=== PATIENT | male | born 1995 | race Hispanic/Latino ===

== ENCOUNTER 2020-03-06 16:33 | Inpatient (IN) | payer OTHER ==
[~2020-03-06] VITALS: Ht 167.6 cm; Wt 63.4 kg
[2020-03-06 17:31] LABS: BASOPHILS % (AUTO) 0.8 % (0.0-5.0); EOSINOPHILS % (AUTO) 3.2 % (0.0-8.0); HEMATOCRIT 36.1 % (42-54); LYMPHOCYTES % (AUTO) 26.3 % (21.0-51.0); MEAN CORPUSCULAR HEMOGLOBIN 30.1 pg (27.0-33.0); MEAN CORPUSCULAR HGB CONC 33.8 g/dL (32.0-36.0); MEAN CORPUSCULAR VOLUME 89.1 fL (79-99); MONOCYTES % (AUTO) 9.3 % (3.0-13.0); PLATELET COUNT (AUTO) 445 K/uL (130-400); RED BLOOD CELL COUNT(AUTO) 4.05 MIL/uL (4.50-6.20); RED CELL DISTRIBUTION WIDTH 13.1 % (11.0-15.5); WHITE BLOOD COUNT (AUTO) 11.9 K/uL (4.8-10.8)
[2020-03-06] MEDS ORDERED: PANTOPRAZOLE 40 MG/VIAL ONE (17:32)
[2020-03-06 17:43] LABS: APPEARANCE,URINE Clear (CLEAR); BILIRUBIN,URINE Negative (NEGATIVE); COLOR,URINE Yellow (YELLOW); GLUCOSE, URINE (UA) Negative (NEGATIVE); KETONES,URINE Negative (NEGATIVE); LEUKOCYTE ESTERASE ,URINE Negative (NEGATIVE); NITRATE,URINE Negative (NEGATIVE); OCCULT BLOOD,URINE Negative (NEGATIVE); PROTEIN,URINE Negative (NEGATIVE); UROBILINOGEN,URINE 0.2 mg/dL (0.2-1.0)
[2020-03-06 18:05] LABS: PARTIAL THROMBOPLASTIN TIME 28.5 SEC (26.3-35.5); PROTHROMBIN TIME 10.8 SEC (9.6-11.6)
[2020-03-06 18:35] LABS: ALBUMIN 3.5 g/dL (3.5-5.0); BILIRUBIN,TOTAL 0.2 mg/dL (0.2-1.0); CREATININE 0.8 mg/dL (0.5-1.5); POTASSIUM 3.9 mmol/L (3.5-5.1); TOTAL PROTEIN, SERUM 7.2 g/dL (6.0-8.3)
[2020-03-06] MEDS ORDERED: ONDANSETRON HCL 4 MG/2 ML VIAL IV PRN (20:45)
[2020-03-06] MEDS ORDERED: ACETAMINOPHEN 325 MG TAB PO PRN ×2 (20:45)
[2020-03-06] MEDS ORDERED: LACTULOSE 20 GM/30 ML UDCUP PO PRN (20:45)
[2020-03-06] MEDS ORDERED: LACTULOSE 20 GM/30 ML UDCUP ONE (21:34)
[2020-03-06] MEDS ORDERED: SODIUM CHLORIDE 0.9% 1000ML 1,000 ML IV ONE (21:34)
[2020-03-06] MEDS ORDERED: METRONIDAZOLE 500MG/100ML BAG 100 ML ONE (21:37)
[2020-03-06] MEDS ORDERED: PHARMACY COMMUNICATION MISC SCH (21:45)
[2020-03-06] MEDS: METRONIDAZOLE 500MG/100ML BAG 100 ML IVPB SCH (22:00)
[2020-03-06] MEDS: SODIUM CHLORIDE 0.9% 1000ML 1,000 ML IV SCH (22:39)
[2020-03-06 22:45] VITALS: BP 114/67
[2020-03-06] MEDS ORDERED: ACET-2743 PO (23:49)
[2020-03-06] MEDS ORDERED: LEVE500L PO (23:49)
[2020-03-06] MEDS ORDERED: PHEN100O5 PO (23:49)
[2020-03-06] MEDS ORDERED: BACL10TA PO (23:49)
[2020-03-06] MEDS ORDERED: THIA100T75 PO (23:49)
[2020-03-06] MEDS ORDERED: ASPI-1005 PO (23:49)
[2020-03-06] MEDS ORDERED: PYRI50TA13 PO (23:49)
[2020-03-06] MEDS ORDERED: PNV1TABL90 PO (23:49)
[2020-03-07 04:10] VITALS: BP 117/60
[2020-03-07] MEDS: METRONIDAZOLE 500MG/100ML BAG 100 ML IVPB SCH (05:10)
[2020-03-07] MEDS: SODIUM CHLORIDE 0.9% 1000ML 1,000 ML IV SCH ×3 (05:11→21:16)
[2020-03-07 06:19] LABS: BASOPHILS % (AUTO) 0.7 % (0.0-5.0); EOSINOPHILS % (AUTO) 4.1 % (0.0-8.0); HEMATOCRIT 34.3 % (42-54); LYMPHOCYTES % (AUTO) 28.4 % (21.0-51.0); MEAN CORPUSCULAR HEMOGLOBIN 30.1 pg (27.0-33.0); MEAN CORPUSCULAR HGB CONC 33.8 g/dL (32.0-36.0); MEAN CORPUSCULAR VOLUME 89.1 fL (79-99); MONOCYTES % (AUTO) 6.6 % (3.0-13.0); NEUTROPHILS % (AUTO) 59.9 % (40.0-77.0); PLATELET COUNT (AUTO) 420 K/uL (130-400); RED BLOOD CELL COUNT(AUTO) 3.85 MIL/uL (4.50-6.20); RED CELL DISTRIBUTION WIDTH 13.2 % (11.0-15.5); WHITE BLOOD COUNT (AUTO) 11.5 K/uL (4.8-10.8)
[2020-03-07 06:58] LABS: CREATININE 0.7 mg/dL (0.5-1.5); POTASSIUM 3.6 mmol/L (3.5-5.1)
[2020-03-07 08:00] VITALS: BP 129/78
[2020-03-07] MEDS ORDERED: THIAMINE MONONITRATE 100 MG PO SCH (09:00)
[2020-03-07] MEDS ORDERED: [UNRECOGNIZED DRUG - REMARK] PO SCH (09:00)
[2020-03-07] MEDS ORDERED: LEVETIRACETAM PO SCH (09:00)
[2020-03-07] MEDS: PANTOPRAZOLE 40 MG/VIAL IVP SCH (09:01)
[2020-03-07 09:05] LABS: FERRITIN 160 ng/mL (30-400); IRON, SERUM 87 mcg/dL (65-175)
[2020-03-07 12:00] VITALS: BP 120/75
[2020-03-07] MEDS ORDERED: COMPOUND PO MISCELLANEOUS 1 EACH MISC MISC PRN (12:30)
[2020-03-07] MEDS: BACLOFEN 10 MG TABLET PO SCH ×4 (13:00→21:16)
[2020-03-07] MEDS: PYRIDOXINE HCL 50 MG TABLET PO SCH ×2 (13:25→21:16)
[2020-03-07] MEDS: ASPIRIN 81MG TAB.CHEW PO SCH (13:25)
[2020-03-07] MEDS: PHENYTOIN 100 MG/4 ML UDCUP PO SCH ×2 (13:25→21:15)
[2020-03-07] MEDS: VANCOMYCIN 250MG/5ML ORAL SOLUTION 40ML PO SCH ×6 (13:27→23:37)
[2020-03-07 16:00] VITALS: BP 124/77
--- NOTE | 2020-03-07 17:05 | NUR ---
INITIAL: No family at the bedside. pt unable to provide history. Call placed to pt's brother Jose Carlos. Pt w recent lengthy hospitalization @ [facility]. Pt lives w brother (Jose Carlos) and friend Urszula. Pt dependent w ADLs and wc bound. Per Jose Carlos he is able to transfer pt to /hospital bed. Jose Carlos mentions that he administers pt's Tube Feedings (Ensure) which are supplied by a program. Jose Carlos mentions that [facility] assisted w prescriptions [place] and provided 3months supply. Pt does not have any healthcare insurance. Per Jose Carlos dcp at this time is for pt to return back home. CM to continue to follow and wait for Md recommendations. Addendum: 03/07/20 at 1710 by HAMILTON TORRES Amended: Links added.
[2020-03-07 20:00] VITALS: BP 117/67
[2020-03-07] MEDS: LEVETIRACETAM 100 MG/ML 5 ML UDCUP PO SCH (21:15)
[2020-03-08] VITALS (7 sets, daily range): BP systolic 115–135; BP diastolic 66–86
[2020-03-08] MEDS: VANCOMYCIN 250MG/5ML ORAL SOLUTION 40ML PO SCH ×6 (05:57→20:12)
[2020-03-08 06:35] LABS: BASOPHILS % (AUTO) 0.6 % (0.0-5.0); EOSINOPHILS % (AUTO) 4.9 % (0.0-8.0); HEMATOCRIT 33.6 % (42-54); LYMPHOCYTES % (AUTO) 24.9 % (21.0-51.0); MEAN CORPUSCULAR HEMOGLOBIN 29.9 pg (27.0-33.0); MEAN CORPUSCULAR HGB CONC 33.9 g/dL (32.0-36.0); MEAN CORPUSCULAR VOLUME 88.2 fL (79-99); MONOCYTES % (AUTO) 7.7 % (3.0-13.0); NEUTROPHILS % (AUTO) 61.6 % (40.0-77.0); PLATELET COUNT (AUTO) 371 K/uL (130-400); RED BLOOD CELL COUNT(AUTO) 3.81 MIL/uL (4.50-6.20); RED CELL DISTRIBUTION WIDTH 12.8 % (11.0-15.5)
[2020-03-08 06:40] LABS: CARBON DIOXIDE 24 mmol/L (21-32); CHLORIDE 104 mmol/L (101-111); CREATININE 0.7 mg/dL (0.5-1.5); GLOMERULAR FILTR. RATE CALC 150 mL/min (>60); GLUCOSE,RANDOM 96 mg/dL (70-105); POTASSIUM 3.1 mmol/L (3.5-5.1); SODIUM SERUM 139 mmol/L (136-145); UREA NITROGEN, BLOOD 6 mg/dL (7-18)
[2020-03-08] MEDS ORDERED: POTASSIUM CHLORIDE 20 MEQ ERTAB PO PRN (07:00)
[2020-03-08] MEDS ORDERED: POTASSIUM CHLORIDE 20MEQ/100ML 100 ML IV PRN (07:00)
[2020-03-08] MEDS ORDERED: BUTALB/ACETAMINOPHEN/CAFFEINE 1 EACH TABLET PO PRN (09:03)
[2020-03-08] MEDS ORDERED: PHENYTOIN 100 MG/4 ML UDCUP PO SCH (09:15)
[2020-03-08] MEDS: PRENATAL VITAMIN RX TABLET PO SCH (09:54)
[2020-03-08] MEDS: ASPIRIN 81MG TAB.CHEW PO SCH (09:54)
[2020-03-08] MEDS: PYRIDOXINE HCL 50 MG TABLET PO SCH ×2 (09:54→20:57)
[2020-03-08] MEDS: BACLOFEN 10 MG TABLET PO SCH ×4 (09:54→20:58)
[2020-03-08] MEDS: THIAMINE HCL 100 MG TABLET PO SCH (09:55)
[2020-03-08] MEDS: LEVETIRACETAM 100 MG/ML 5 ML UDCUP PO SCH ×3 (09:55→20:57)
[2020-03-08] MEDS: PANTOPRAZOLE 40 MG/VIAL IVP SCH (10:04)
[2020-03-08] MEDS: PHENYTOIN 100 MG/4 ML UDCUP PO SCH ×2 (11:14→20:56)
[2020-03-08] MEDS: SODIUM CHLORIDE 0.9% 1000ML 1,000 ML IV SCH ×2 (13:27→22:11)
--- NOTE | 2020-03-08 14:00 | NUR ---
MBSS COMPLETED. +DEEP NON-TRANSIENT PENETRATION WITH NECTAR-THICK LIQUIDS AND HONEY-THICK LIQUIDS VIA CUP SIP. RECOMMEND PLEASURE FEEDS OF PUREED AND HONEY-THICK LIQUIDS VIA TSP WITH PEG FEEDINGS. RECOMMENDATIONS: DYSPHAGIA THERAPY 3-5X WEEK TO INCREASE ORAL MOTOR STRENGTH AND PHARYNGEAL SWALLOW: LTG#1: Pt WILL TOLERATE LEAST RESTRICTIVE DIET TO MEET NUTRITION/HYDRATION WITH NO S/S OF ASPIRATION. LTG#2: SKILLED EDUCATION Pt/FAMILY/STAFF STG#1: Pt WILL PARTICIPATE IN LARYNGEAL ELEVATION/EXCURSION EXERCISES WITH 80% ACCURACY. STG#2: Pt WILL PARTICIPATE IN TONGUE BASE RETRACTION EXERCISES WITH 80% ACCURACY. STG#3: Pt WILL PARTICIPATE IN ORAL MOTOR EXERCISES WITH 80% ACCURACY. STG#4: Pt WILL PARTICIPATE IN PLEASURE FEEDS OF PUREED CONSISTENCY WITH NO THAN 2 S/S OF ASPIRATION, STG#5: PT WILL BE ABLE TO PARTICIPATE IN MBSS AFTER 2-4 WEEKS OF THERAPEUTIC INTERVENTION. STG#6: SKILLED EDUCATION Pt/FAMILY/STAFF. STRINGED INSTRUMENT REPAIRER COORDINATED CARE WITH NURSE GARCIA AND BROTHANGELA FLOWERS. ALL QUESTIONS ANSWERED AT THIS TIME. ALL QUESTIONS ANSWERED AT THIS TIME. Addendum: 03/08/20 at 1539 by KAVITA MERRITT, SPT ST Amended: Links added.
--- NOTE | 2020-03-08 14:11 | NUR ---
RD NOTIFICATION Pt admitted due to encephalopathy and lower GI bleed. RD consulted for TF recommendations Pt has permanent PEG tube and brother provides feedings Q3 hrs. Pt receives 8 ensure bottles and 1 cup of flush after feedings (sibling does not know actual ml or oz measurement). As per brother each ensure bottle provides him [address] RECOMMENDATION: When medically appropriate to initiate feedings. It is recommended for Jevity 1.5, 6 bottles every 24hrs. 85 ml water flush before and after each feeding. This will provide: 2130 kcal, 91 gm protein and 1080 ml free water. Assess TF tolerance Monitor labs. Speech consult is recommended Consult RD for d/c TF recommendations (Will differ from current TF recommendations) LABS: K 3.1, BUN 6, BG 96, ALB 3.5, TOT PRO 7.2, PROCALCITONIN <0.05 LBM: 03/07/20 RD will continue to monitor pt's status Consult RD as nutritional concerns arise Addendum: 03/08/20 at [address] Amended: Links added.
--- NOTE | 2020-03-08 15:14 | NUR ---
Patient's brother Jose Carlos is at bedside in PM, stated that Mr. Michael Trevizo was admitted at [facility] [place] and [facility] February.Per brother Jose Carlos, patient is non-ambulatory for 2 months now.Patient was awake in a supine position RUE in extended position and all fingers are abducted, bilateral knee joints are in semi-flexion position and bilateral hips are abducted and externally rotated. Addendum: 03/08/20 at 1521 by NERIS TINOCO, PT PT Amended: Links added.
--- NOTE | 2020-03-08 21:00 | NUR ---
MEDS SHIFT ASSESSMENT DONE, PLEASE REFER TO CHART. RE-POSITIONED PT IN BED WITH HOB ELEVATED. DUE PO MEDS ADMINISTERED VIA PEG TUBE, TOLERATED WELL. KEPT COMFORTABLE AND RESTED. WILL MONITOR CLOSELY. Addendum: 03/09/20 at 0220 by INA TEJADA RN RN Amended: Links added.
--- NOTE | 2020-03-08 22:15 | NUR ---
FEEDING RE-POSITIONED PT IN BED WITH HOB ELEVATED. STARTED BOLUS FEEDING OF JEVITY 1.5, EQUIVALENT OF 1 1/2 CANS GIVEN VIA PEG TUBE. WATER FLUSHES GIVEN. PT TOLERATED FEEDING WELL. WILL CONTINUE TO MONITOR.
[2020-03-09] MEDS: VANCOMYCIN 250MG/5ML ORAL SOLUTION 40ML PO SCH ×8 (00:22→17:35)
[2020-03-09] MEDS: SODIUM CHLORIDE 0.9% 1000ML 1,000 ML IV SCH ×3 (02:15→16:59)
--- NOTE | 2020-03-09 02:20 | NUR ---
IVF PT IS CALM AND QUITE AT THIS TIME. NO DISTRESS NOTED. KEPT COMFORTABLE. NEW TUBING AND NEW IV BAG HUNG.
[2020-03-09 03:17] VITALS: BP 128/69
[2020-03-09] MEDS: POTASSIUM CHLORIDE 10% ELIXIR 20 MEQ/15 ML UDCUP PO PRN ×2 (04:30→06:08)
[2020-03-09 05:54] LABS: BASOPHILS % (AUTO) 0.9 % (0.0-5.0); EOSINOPHILS % (AUTO) 10.1 % (0.0-8.0); HEMATOCRIT 32.7 % (42-54); LYMPHOCYTES % (AUTO) 28.2 % (21.0-51.0); MEAN CORPUSCULAR HEMOGLOBIN 30.2 pg (27.0-33.0); MEAN CORPUSCULAR HGB CONC 34.9 g/dL (32.0-36.0); MEAN CORPUSCULAR VOLUME 86.7 fL (79-99); MONOCYTES % (AUTO) 7.8 % (3.0-13.0); NEUTROPHILS % (AUTO) 52.8 % (40.0-77.0); PLATELET COUNT (AUTO) 368 K/uL (130-400); RED BLOOD CELL COUNT(AUTO) 3.77 MIL/uL (4.50-6.20); RED CELL DISTRIBUTION WIDTH 12.7 % (11.0-15.5); WHITE BLOOD COUNT (AUTO) 9.6 K/uL (4.8-10.8)
--- NOTE | 2020-03-09 05:57 | NUR ---
FEEDING RE-POSITIONED COMFORTABLY IN BED. BOLUS FEEDING ADMINISTERED, TOLERATED WELL. DUE MEDS ADMINISTERED WELL. FOR MORE CARE.
[2020-03-09 06:08] LABS: CREATININE 0.7 mg/dL (0.5-1.5); POTASSIUM 3.4 mmol/L (3.5-5.1)
[2020-03-09 08:00] VITALS: BP 119/68
[2020-03-09] MEDS ORDERED: POTASSIUM CHLORIDE 10% ELIXIR 20 MEQ/15 ML UDCUP PEG SCH (08:00)
--- NOTE | 2020-03-09 09:20 | NUR ---
DYSPHAGIA TREATMENT BUSINESS INTELLIGENCE MANAGER COORDINATED WITH NURSE BILLINGS ABOUT DYSPHAGIA TREATMENT. Pt ASLEEP IN BED UPON ARRIVAL. Pt OPENED EYES WITH VERBAL AND TACTILE CUES HOWEVER CLOSED HIS EYES BACK AGAIN. BUSINESS INTELLIGENCE MANAGER GAVE PATIENT MAX ENCOURAGEMENT AND MAX VERBAL AND TACTILE CUES TO REMAIN AWAKE AND PARTICIPATE IN THERAPEUTIC TRIALS, BUT PATIENT REMAINED WITH EYES CLOSED. BUSINESS INTELLIGENCE MANAGER ATTEMPTED A FEW TIMES, BUT PATIENT'S STATUS REMAINED THE SAME. BUSINESS INTELLIGENCE MANAGER WILL ATTEMPT TREATMENT WHEN PATIENT IS ABLE TO PARTICIPATE. Pt AT HIGH RISK FOR ANY P.O. TRIALS AND/OR PLEASURE FEEDINGS AT THIS TIME. Addendum: 03/09/[address] NEHA WATSON Amended: Links added.
[2020-03-09] MEDS: LEVETIRACETAM 100 MG/ML 5 ML UDCUP PO SCH ×2 (10:54→22:27)
[2020-03-09] MEDS: PANTOPRAZOLE 40 MG/VIAL IVP SCH (10:54)
[2020-03-09] MEDS: PYRIDOXINE HCL 50 MG TABLET PO SCH ×2 (10:54→22:26)
[2020-03-09] MEDS: PRENATAL VITAMIN RX TABLET PO SCH (10:54)
[2020-03-09] MEDS: THIAMINE HCL 100 MG TABLET PO SCH (10:54)
[2020-03-09] MEDS: ASPIRIN 81MG TAB.CHEW PO SCH (10:54)
[2020-03-09] MEDS: PHENYTOIN 100 MG/4 ML UDCUP PO SCH ×2 (10:55→22:27)
[2020-03-09] MEDS: BACLOFEN 10 MG TABLET PO SCH ×4 (10:59→22:26)
[2020-03-09 12:00] VITALS: BP 112/75
--- NOTE | 2020-03-09 12:00 | NUR ---
RD FOLLOW UP Pt is on Jevity 1.5 TF bolus regimen. As per EMR, pt is tolerating TF with 0 ml residuals As per PORTFOLIO DIRECTOR, pt is able to have pleasure feeds of puree foods and honey thick liquids Monitor for s/s of aspiration. [facility] staff has been notified of pleasure feedings. RD RECOMMENDATION: Continue current tube feedings Monitor electrolytes, residuals, hydration. Monitor PO tolerance to modified foods Monitor need for Mg replacement if medically feasible Continue B1 and MVI/Iron/Mineral/FA supplementation LABS: WBC 9.6, NA 137, K 3.4, MG 1.6, IRON 87, ALB 3.5, TOT PRO 7.2, MG 1.6 RD will continue to follow.
[2020-03-09] MEDS: MAGNESIUM 2GM PREMIX 50ML 50 ML IV SCH (14:33)
[2020-03-09 15:58] VITALS: BP 112/60
--- NOTE | 2020-03-09 18:15 | NUR ---
PEG TUBE RESIDUAL>100 HELD FEEDING. WILL CONTINUE TO FOLLOW.
[2020-03-09 19:47] VITALS: BP 146/86
--- NOTE | 2020-03-09 22:20 | NUR ---
Peg tube feeding In bed awake and responsive,but nonverbal. He seems able to understand because he smiles and nod. Peg tube at the level of 7 cm. Scant bled noted at stoma site. Cleansed with NS and pat dry with 4x4 gauze. No residuals noted. Lungs clear to auscultation. No cough. Intermittent feeding given as ordered ( Jevity 1.5) and flushed with 85 cc H2O before and after feeding. Maintained HOBE while feeding and 45 mins after to prevent aspiration. Feeding tolerated. No apparent distress /discomfort noted. Abdominal binder kept in place.
[2020-03-09 23:57] VITALS: BP 113/62
[2020-03-10] MEDS: VANCOMYCIN 250MG/5ML ORAL SOLUTION 40ML PO SCH ×8 (00:46→16:45)
[2020-03-10 04:00] VITALS: BP 123/71
[2020-03-10] MEDS: SODIUM CHLORIDE 0.9% 1000ML 1,000 ML IV SCH ×2 (04:45→14:45)
[2020-03-10 06:15] LABS: EOSINOPHILS % (AUTO) 11.3 % (0.0-8.0); HEMATOCRIT 33.3 % (42-54); LYMPHOCYTES % (AUTO) 37.7 % (21.0-51.0); MEAN CORPUSCULAR HEMOGLOBIN 30.2 pg (27.0-33.0); MEAN CORPUSCULAR HGB CONC 34.5 g/dL (32.0-36.0); MEAN CORPUSCULAR VOLUME 87.4 fL (79-99); MONOCYTES % (AUTO) 5.8 % (3.0-13.0); NEUTROPHILS % (AUTO) 43.9 % (40.0-77.0); PLATELET COUNT (AUTO) 388 K/uL (130-400); RED BLOOD CELL COUNT(AUTO) 3.81 MIL/uL (4.50-6.20); RED CELL DISTRIBUTION WIDTH 12.9 % (11.0-15.5); WHITE BLOOD COUNT (AUTO) 8.8 K/uL (4.8-10.8)
[2020-03-10 06:21] LABS: MAGNESIUM 1.7 mg/dL (1.80-2.40); POTASSIUM 3.5 mmol/L (3.5-5.1)
[2020-03-10] MEDS: MAGNESIUM 2GM PREMIX 50ML 50 ML IV SCH (06:47)
--- NOTE | 2020-03-10 08:20 | NUR ---
DYSPHAGIA TREATMENT COMPLETED. S: Pt COOPERATIVE DURING THE SESSION. Pt ALERT AND RESPONDING TO BASIC COMMANDS WITH GESTURES. DIRECTOR OF BUSINESS APPLICATIONS REPOSITION PATIENT IN BED TO 90 DEGREES AND PROVIDED ORAL CARE BEFORE STARTING P.O. THERAPEUTIC TRIALS. O: Pt CURRENTLY TARGETING SWALLOWS GOALS. RESULTS ARE FOLLOWS: LTG#1: Pt WILL TOLERATE LEAST RESTRICTIVE DIET TO MEET NUTRITION/HYDRATION WITH NO S/S OF ASPIRATION. LTG#2: SKILLED EDUCATION Pt/FAMILY/STAFF. STG#1: Pt WILL PARTICIPATE IN LARYNGEAL ELEVATION/EXCURSION EXERCISES WITH 80% ACCURACY: 70% ACCURACY. STG#2: Pt WILL PARTICIPATE IN TONGUE BASE RETRACTION EXERCISES WITH 80% ACCURACY: 80% ACCURACY. STG#3: Pt WILL PARTICIPATE IN ORAL MOTOR EXERCISES WITH 80% ACCURACY: 80% ACCURACY. STG#4: Pt WILL PARTICIPATE IN PLEASURE FEEDS OF PUREED CONSISTENCY WITH NO MORE THAN 2 S/S OF ASPIRATION: PUREED CONSISTENCY X 4 WITH NO S/S OF ASPIRATION, HONEY THICK LIQUIDS X4 WITH NO S/S OF ASPIRATION. STG#5: SKILLED EDUCATION Pt/FAMILY/STAFF: COMPLETED A: Pt COOPERATIVE WITH ALL TRIALS AND ACTIVITIES. PATIENT NOTED WITH DELAYED SWALLOW TRIGGER RESPONSE GIVEN MAX CUES TO INITIATE SWALLOW. P: RECOMMEND THE CONTINUATION OF INITIAL ST PLAN OF CARE: PLEASURE FEEDS OF PUREED AND HONEY THICK LIQUIDS VIA TSP WITH PEG FEEDINGS AT THIS TIME. DIRECTOR OF BUSINESS APPLICATIONS COORDINATED WITH NURSE BILLINGS. Addendum: 03/10/[address] NEHA WATSON Amended: Links added.
[2020-03-10] MEDS ORDERED: POTASSIUM CHLORIDE 10% ELIXIR 20 MEQ/15 ML UDCUP PO SCH (08:30)
[2020-03-10 09:09] VITALS: BP 120/71
[2020-03-10] MEDS: PHENYTOIN 100 MG/4 ML UDCUP PO SCH (09:26)
[2020-03-10] MEDS: LEVETIRACETAM 100 MG/ML 5 ML UDCUP PO SCH (09:29)
[2020-03-10] MEDS: PANTOPRAZOLE 40 MG/VIAL IVP SCH (09:30)
[2020-03-10] MEDS: THIAMINE HCL 100 MG TABLET PO SCH (09:30)
[2020-03-10] MEDS: BACLOFEN 10 MG TABLET PO SCH ×3 (09:30→16:45)
[2020-03-10] MEDS: PRENATAL VITAMIN RX TABLET PO SCH (09:30)
[2020-03-10] MEDS: PYRIDOXINE HCL 50 MG TABLET PO SCH (09:30)
[2020-03-10] MEDS: ASPIRIN 81MG TAB.CHEW PO SCH (09:31)
[2020-03-10 13:07] VITALS: BP 121/73
--- NOTE | 2020-03-10 13:22 | NUR ---
CM Note: EMS arranged and faxed for today per brother's request, private pay. Primary nurse aware to call [facility] once pt ready to DC. CM to continue to follow up.
[2020-03-10] MEDS ORDERED: METRONIDAZOLE 500 MG TABLET PEG SCH (14:15)
[2020-03-10 16:32] VITALS: BP 108/54
--- NOTE | 2020-03-10 20:45 | NUR ---
DISCHARGE NOTE: Pt. fully awake and responsive only with facial expression and hand gestures. Pt. non-verbal. Pt looks very happy and excited to go home. Picked up by EMS via stretcher. Discharge instructions given to significant other by Day shift RN. Talked to Urszula ( a friend that pt and brother lived with) that pt is about to go home already. Peg Tube patent and intact. No apparent distress or discomfort noted. No untoward incident happened. PIV line already terminated by Day Shift RN.
== END 2020-03-10 20:46 | disposition home or self-care (01) | DRG 372 ==
LOC: EDH 16:33 → OBSVTOIN 16:34 → EDHIP 16:34 → 3CH 21:46
PROVIDERS: ADMIT Internal Medicine; ATTEND Internal Medicine
DX: A04.72 Enterocolitis due to Clostridium difficile, not specified as recurrent (principal); G82.20 Paraplegia, unspecified; G93.40 Encephalopathy, unspecified; R47.01 Aphasia; K92.2 Gastrointestinal hemorrhage, unspecified; D64.9 Anemia, unspecified; G40.909 Epilepsy, unspecified, not intractable, without status epilepticus; R13.10 Dysphagia, unspecified; Z20.828 Contact with and (suspected) exposure to other viral communicable diseases; Z87.820 Personal history of traumatic brain injury; Z93.1 Gastrostomy status
CPT/HCPCS: 36415; 70450; 74018; 74230; 80048; 80053; 80156; 80185; 81003; 82270; 82550; 82728; 83540; 83605; 83735; 84132; 84145; 85025; 85610; 85730; 86850; 86900; 86901; 86923; 87040; 87046; 87324; 87426; 92526; 92610; 92611; 97039; C9113; G0378; J3370; J3475; J3490; J7030; U0003

== ENCOUNTER 2020-03-13 16:14 | Emergency (ER) | payer MEDICAID, OTHER ==
[~2020-03-13 16:14] MED LIST: ACET-2743 PO; ASPI-1005 PO; BACL10TA PO; LEVE500L PO; PHEN100O5 PO; PNV1TABL90 PO; PYRI50TA13 PO; THIA100T75 PO
== END 2020-03-13 17:56 | disposition home or self-care (01) ==
LOC: EDH 16:14
DX: R10.2 Pelvic and perineal pain (principal)
CPT/HCPCS: 72170